=== PATIENT | female | born 1955 | race Caucasian/White ===

== ENCOUNTER 2022-02-10 10:54 | Outpatient (CLI) | payer MEDICARE, BC | END 2022-02-10 10:55 | disposition home or self-care (01) | LOC: CSHMAMMO 10:54 | PROVIDERS: ATTEND Internal Medicine Endocrinology, Diabetes & Metabolism | DX: M81.0 Age-related osteoporosis without current pathological fracture (principal) | CPT/HCPCS: 77080 ==

== ENCOUNTER 2022-07-27 13:46 | Outpatient (CLI) | payer MEDICARE, BC | END 2022-07-27 13:47 | disposition home or self-care (01) | LOC: CSHMAMMO 13:46 | PROVIDERS: ATTEND Internal Medicine | DX: Z12.31 Encounter for screening mammogram for malignant neoplasm of breast (principal) | CPT/HCPCS: 77063; 77067 ==

== ENCOUNTER 2023-02-16 13:17 | Outpatient (CLI) | payer MEDICARE, BC | END 2023-02-16 13:18 | disposition home or self-care (01) | LOC: CSHMAMMO 13:17 | PROVIDERS: ATTEND Internal Medicine Endocrinology, Diabetes & Metabolism | DX: M81.0 Age-related osteoporosis without current pathological fracture (principal); M85.851 Other specified disorders of bone density and structure, right thigh | CPT/HCPCS: 77080 ==

== ENCOUNTER 2024-02-20 10:58 | Outpatient (CLI) | payer MEDICARE, BC | END 2024-02-20 10:59 | disposition home or self-care (01) | LOC: CSHMAMMO 10:58 | PROVIDERS: ATTEND Internal Medicine Endocrinology, Diabetes & Metabolism | DX: M81.0 Age-related osteoporosis without current pathological fracture (principal) | CPT/HCPCS: 77080 ==